=== PATIENT | female | born 1995 | race Caucasian/White ===

== ENCOUNTER 2018-12-27 02:46 | Emergency (ER) | payer OTHER ==
[2018-12-27 03:24] VITALS: BP 144/86; PULSE 112; RESP 18; TEMP 97.9
--- NOTE | 2018-12-27 03:42 | XR ---
EXAM: XR Right Hand Complete, 3 or More Views CLINICAL HISTORY: Pain TECHNIQUE: Frontal, lateral and oblique views of the right hand. COMPARISON: No relevant prior studies available. FINDINGS: Bones/joints: Unremarkable. No acute fracture. No dislocation. Soft tissues: Unremarkable. No radiopaque foreign body. IMPRESSION: Normal right hand x-rays.
--- NOTE | 2018-12-27 03:59 | ED ---
Upper Extremity HPI - General Chief Complaint: Extremity Injury, Upper Stated Complaint: [facility] Pinched Finger Time Seen by Provider: 12/27/18 03:21 Source: patient Mode of arrival: ambulatory Limitations: no limitations - History of Present Illness Initial Comments: This patient is 23-year-old woman who states that tonight she had been at work, when fixture closed crushing her right third digit. She indicates pain of the finger mainly at the PIP joint. She denies numbness of the extremity. Patient states the pain is moderate, constant, aching, and is worse with movement. MD Complaint: Injury to:: right, finger -: hour(s) Other Extremity Injury: Fingers: Right Other Injuries: none Handedness: right Place: work Improves With: none Worsens With: movement of extremity Context: crush Associated Symptoms: denies other symptoms - Related Data Home Medications Medication Instructions Recorded Confirmed Ranitidine HCl [Zantac] 75 mg PO HS 01/20/15 01/20/15 diphenhydrAMINE [Benadryl] 50 mg PO HS PRN 01/20/15 01/20/15 Previous Rx's Medication Instructions Recorded Acetaminophen-Codeine 300-30mg 1 each PO Q4HR PRN #30 tab 01/22/15 [Tylenol w/codeine #3] Ibuprofen [Motrin] 600 mg PO Q6HR PRN #30 tab 01/22/15 Allergies Allergy/AdvReac Type Severity Reaction Status Date / Time Penicillins Allergy Nausea & Verified 01/20/15 06:04 Vomiting Review of Systems ROS Statement: Those systems with pertinent positive or pertinent negative responses have been documented in the HPI. ROS Other: All systems not noted in ROS Statement are negative. Constitutional: Denies: weakness Musculoskeletal: Reports: as per HPI, joint swelling, arthralgia Neurological: Denies: weakness, numbness, paresthesias Past Medical History Past Medical History: No Reported History Additional Past Medical History / Comment(s): Obstetric history: This is her first and she has had care with me since 6 weeks. A+, abs neg, Rub Imm, RPR NR, HIV NR, toxo neg. normal anatomy US and normal 1hr GTT. GBS neg. History of Any Multi-Drug Resistant Organisms: None Reported Additional Past Surgical History / Comment(s): Left Ear surgery in childhood. Wire Removed from throat 2010 Past Anesthesia/Blood Transfusion Reactions: No Reported Reaction Past Psychological History: Anxiety, Depression Smoking Status: Never smoker Past Alcohol Use History: None Reported Past Drug Use History: None Reported - Past Family History Mother Family Medical History: Asthma General Exam Limitations: no limitations General appearance: alert, in no apparent distress Head exam: Present: atraumatic, normocephalic Cardiovascular Exam: Present: other Right Hand Wrist exam: Present: tenderness, swelling (Of third digit, right hand, mainly at the PIP joint. No ligamentous laxity), ecchymosis. Absent: full ROM (There is range of motion though somewhat limited by pain and swelling.), abrasion, laceration, deformity, crepitus, dislocation Vascular: Present: normal capillary refill. Absent: vascular compromise Neurological exam: Present: alert. Absent: motor sensory deficit Skin exam: Present: warm, dry, intact, normal color. Absent: rash Course Vital Signs 12/27/18 02:57 Temperature 97.9 F Pulse Rate 112 H Respiratory 18 Rate Blood Pressure 144/86 O2 Sat by Pulse 100 Oximetry Disposition Clinical Impression: Crushing injury of finger Disposition: HOME SELF-CARE Condition: Good Instructions (If sedation given, give patient instructions): Crush Injury (ED) Is patient prescribed a controlled substance at d/c from ED?: No Referrals: Shun Guzman MD [Primary Care Provider] - 1-2 days
== END 2018-12-27 04:11 | disposition home or self-care (01) ==
LOC: EC 02:46
DX: S67.192A Crushing injury of right middle finger, initial encounter (principal); S60.031A Contusion of right middle finger without damage to nail, initial encounter; Z98.890 Other specified postprocedural states; Z79.899 Other long term (current) drug therapy; Z88.0 Allergy status to penicillin; W23.0XXA Caught, crushed, jammed, or pinched between moving objects, initial encounter; Y92.69 Other specified industrial and construction area as the place of occurrence of the external cause; Y99.0 Civilian activity done for income or pay
CPT/HCPCS: 99283

== ENCOUNTER → 2019-01-03 | Outpatient (CLI) | payer OTHER ==
--- NOTE | 2019-01-03 09:36 | XR ---
EXAMINATION TYPE: XR finger RT DATE OF EXAM: 01/03/2019 COMPARISON: Right hand 12/27/2018 HISTORY: Right middle finger TECHNIQUE: Right middle finger is examined in 3 projections. FINDINGS: No acute fractures are evident. The soft tissues as visualized appear normal. Joint spaces are preserved. IMPRESSION: Normal three-view right middle finger.
== END | disposition home or self-care (01) ==
LOC: RADXRMAIN 08:47
PROVIDERS: ATTEND Emergency Medicine
DX: S67.192D Crushing injury of right middle finger, subsequent encounter (principal)